=== PATIENT | female | born 1955 | race Caucasian/White ===

== ENCOUNTER 2018-10-02 10:36 | Emergency (ER) | payer MEDICARE, OTHER, MEDICAID ==
[~2018-10-02] VITALS: Ht 162.6 cm; Wt 83.5 kg
[2018-10-02 11:01] LABS: HEMOGLOBIN 10.9 G/DL (11.5-16.0); MEAN PLATELET VOLUME 8.9 FL (7.4-10.4); WHITE BLOOD COUNT 6.8 10^3/uL (4.3-11.0)
[2018-10-02 11:18] LABS: CREATININE SERUM 2.19 MG/DL (0.60-1.30); POTASSIUM 3.5 MMOL/L (3.6-5.0)
[2018-10-02 11:19] LABS: CALCIUM 9.4 MG/DL (8.5-10.1)
--- NOTE | 2018-10-02 11:44 | ED Cardiac General ---
History of Present Illness General Chief Complaint: Cardiac/General Problems Stated Complaint: LOW BP Nursing Triage Note: Patient reports she took her son to [facility] and became dizzy and lightheaded while waiting. Per EMS, dialysis center staff took patient's blood pressure, 70/40. Patient's B/P 90/50 on arrival to ED, normal saline bolus infusion started by EMS, patient reports improvement in symptoms. Patient states she restarted her prescription losaartan yesterday evening and accidentaly took another dose this morning with her other morning medications. She also reports taking an extra dose of her lasix this morning d/t increased lower extremity edema. PCP Dr. Gandara in [place], [place], devulcanizer tender Dr. Solis at [facility]. Source: patient Exam Limitations: no limitations History of Present Illness Date Seen by Provider: Oct 02, 2018 Time Seen by Provider: 11:39 Initial Comments Patient is a 63-year-old female with history of hypertension presents with dizziness and lightheadedness sweaty while attending a family members dialysis clinic session. The patient her blood pressure taking his 70/40. EMS was contacted and an IV was established and a fluid bolus was initiated. Blood pressure improved to 90/50. Patient symptoms are improving, but reports dizziness. Patient acknowledges being out of her losartan and Lasix 2 days ago. Patient took a dose last night [place] medication after filling prescription and had additional doses morning prior to departing to the dialysis session. Patient reports nausea,and leg cramps denies chest pain, vomiting, diarrhea, palpitations or shortness of breath. Timing/Duration: 1-3 hours Severity: mild, moderate Activities at Onset: activity Prior CP/Workup: no prior chest pain NTG SL BUILDING MAINTENANCE SUPERVISOR: No ASA po BUILDING MAINTENANCE SUPERVISOR: No Associated Systoms: Denies Symptoms, Chest Pain, Fever/Chills Allergies and Home Medications Allergies Coded Allergies: lisinopril (Verified Adverse Reaction, Unknown, cough, 10/02/18) Patient Home Medication List Home Medication List Reviewed: Yes Review of Systems Review of Systems Constitutional: see HPI EENTM: See HPI Respiratory: See HPI Cardiovascular: See HPI Gastrointestinal: See HPI Genitourinary: See HPI Skin: see HPI Psychiatric/Neurological: See HPI Endocrine: See HPI Hematologic/Lymphatic: See HPI Past [id number] Hx Patient Social History Alcohol Use: Denies Use Recreational Drug Use: No Smoking Status: Never a Smoker 2nd Hand Smoke Exposure: No Recent Foreign Travel: No Contact w/Someone Who Travel: No Recent Infectious Disease Expo: No Recent Hopitalizations: No Physical Abuse: No Sexual Abuse: No Mistreated: No Fear: No Seasonal Allergies Seasonal Allergies: No Past Medical History Surgeries: Yes (Pacemaker/defibrillator) Pacemaker Respiratory: No Cardiac: Yes (CHF) Neurological: No Genitourinary: Yes Renal Failure Gastrointestinal: No Musculoskeletal: No Endocrine: Yes Diabetes, Non-Insulin dep HEENT: No Cancer: No Psychosocial: No Physical Exam Vital Signs Vital Signs - First Documented 10/02/18 10:40 Temp 98.7 Pulse 73 Resp 20 B/P (MAP) 97/54 (68) Pulse Ox 95 O2 Delivery Room Air Capillary Refill : Less Than 3 Seconds Height, Weight, BMI Height: 5'4.00" Weight: 184lbs. oz. 83.057479yr; BMI Method:Stated General Appearance: No Apparent Distress HEENT: PERRL/EOMI, TMs Normal, Normal ENT Inspection Neck: Supple Respiratory: Chest Non Tender, Lungs Clear, Normal Breath Sounds Cardiovascular: Regular Rate, Rhythm Gastrointestinal: Normal Bowel Sounds Extremity: Normal Range of Motion, Non Tender Neurologic/Psychiatric: Alert, Oriented x3, No Motor/Sensory Deficits, Normal Mood/Affect Skin: Normal Color, Warm/Dry Focused Exam Sepsis Stage: Ruled Out Progress/Results/Core Measures Results/Orders Lab Results Laboratory Tests Test 10/02/18 10:45 Range/Units White Blood Count 6.8 4.3-11.0 10^3/uL Red Blood Count 3.48 L 4.35-5.85 10^6/uL Hemoglobin 10.9 L 11.5-16.0 G/DL Hematocrit 32 L 35-52 % Mean Corpuscular Volume 92 80-99 FL Mean Corpuscular Hemoglobin 31 25-34 PG Mean Corpuscular Hemoglobin Concent 34 32-36 G/DL Red Cell Distribution Width 12.0 10.0-14.5 % Platelet Count 223 130-400 10^3/uL Mean Platelet Volume 8.9 7.4-10.4 FL Sodium Level 128 L 135-145 MMOL/L Potassium Level 3.5 L 3.6-5.0 MMOL/L Chloride Level 85 L 98-107 MMOL/L Carbon Dioxide Level 24 21-32 MMOL/L Anion Gap 19 H 5-14 MMOL/L Blood Urea Nitrogen 67 H 7-18 MG/DL Creatinine 2.19 H 0.60-1.30 MG/DL Estimat Glomerular Filtration Rate 23 BUN/Creatinine Ratio 31 Glucose Level 188 H 70-105 MG/DL Calcium Level 9.4 8.5-10.1 MG/DL My Orders Orders - HORTENCIA GODFREY DO Cbc No Diff (10/02/18 10:45) Basic Metabolic Panel (10/02/18 10:45) Ekg Tracing (10/02/18 11:23) Ns Iv 1000 Ml (Sodium Chloride 0.9%) (10/02/18 11:45) Potassium Chloride (Tablet) (K Dur Table (10/02/18 11:45) Medications Given in ED Current Medications Medications Dose Ordered Sig/Shannan Route Start Time Stop Time Status Last Admin Dose Admin Potassium Chloride 40 meq ONCE ONCE PO 10/02/18 11:45 10/02/18 11:46 DC 10/02/18 12:09 40 MEQ Vital Signs/I&O 10/02/18 10:40 Temp 98.7 Pulse 73 Resp 20 B/P (MAP) 97/54 (68) Pulse Ox 95 O2 Delivery Room Air Blood Pressure Mean: 68 Departure Communication (Admissions) Patient's vital signs improved significantly with treatment. Lab work reviewed. Potassium replaced. Patient stated walking without difficulty. She is instructed to not take Lasix or losartan until she follows up with her PCP early next week for reevaluation. She is to continue her home Potassium pills. Impression Primary Impression: Orthostatic hypotension Additional Impressions: Hypokalemia Hyponatremia Chronic renal disease Disposition: HOME, SELF-CARE Condition: Stable Departure-Patient Inst. Decision time for Depature: 12:00 Referrals: MARIA GUADALUPE DONNELLY APRN Patient Instructions: Hypokalemia (DC), Orthostatic Hypotension (DC) Add. Discharge Instructions: Please hold Losartan and Lasix and follow-up with your PCP early next week. In the meantime continue home potassium replacement. Please use pill organizer in future to prevent unintentional duplication of medications. Return to the ED if new or worsening symptoms. All discharge instructions reviewed with patient and/or family. Voiced understanding. HORTENCIA GODFREY DO Oct 02, 2018 11:43
[2018-10-02] MEDS ORDERED: NS IV 1000 ML 1,000 ML IV SCH (11:45)
[2018-10-02] MEDS ORDERED: KCL 20 MEQ TAB (K-DUR) PO ONE (11:45)
[2018-10-02 13:40] VITALS: BP 105/57
== END 2018-10-02 13:40 | disposition home or self-care (01) ==
LOC: ER FS 10:39
DX: I95.9 Hypotension, unspecified (principal); E87.6 Hypokalemia; E87.1 Hypo-osmolality and hyponatremia; I13.0 Hypertensive heart and chronic kidney disease with heart failure and stage 1 through stage 4 chronic kidney disease, or unspecified chronic kidney disease; N18.9 Chronic kidney disease, unspecified; I50.9 Heart failure, unspecified; E11.9 Type 2 diabetes mellitus without complications; Z88.8 Allergy status to other drugs, medicaments and biological substances; Z95.810 Presence of automatic (implantable) cardiac defibrillator
CPT/HCPCS: 36415; 80048; 85027; 93005; 96360

== ENCOUNTER → 2018-10-13 | Outpatient (CLI) | payer MEDICARE, OTHER, MEDICAID ==
[2018-10-13 09:36] LABS: CALCIUM 9.6 MG/DL (8.5-10.1); CREATININE SERUM 1.48 MG/DL (0.60-1.30); POTASSIUM 2.8 MMOL/L (3.6-5.0)
[2018-10-13 09:37] LABS: ALBUMIN 4.1 GM/DL (3.2-4.5); BILIRUBIN,TOTAL 0.4 MG/DL (0.1-1.0); MAGNESIUM 2.2 MG/DL (1.8-2.4); TOTAL PROTEIN 7.7 GM/DL (6.4-8.2)
== END ==
LOC: LAB FS 08:44
PROVIDERS: ATTEND Nurse Practitioner Family
DX: E78.5 Hyperlipidemia, unspecified (principal); I42.0 Dilated cardiomyopathy
CPT/HCPCS: 36415; 80053; 80061; 83735

== ENCOUNTER → 2018-12-09 | Outpatient (CLI) | payer OTHER ==
[2018-12-09 16:00] LABS: CREATININE SERUM 1.51 MG/DL (0.60-1.30)
== END ==
LOC: LAB FS 13:57
PROVIDERS: ATTEND Nurse Practitioner Family
DX: N18.2 Chronic kidney disease, stage 2 (mild) (principal)
CPT/HCPCS: 36415; 80048